=== PATIENT | female | born 1975 | race Caucasian/White ===

== ENCOUNTER 2018-11-25 12:22 | Emergency (ER) | payer SELFPAY ==
[2018-11-25 12:31] VITALS: BP 122/64; PULSE 65; RESP 18; TEMP 36.9; O2SAT 98; BMI 20.5
[2018-11-25 12:55] LABS: Urine Pregnancy, HCG Qual. Negative (Negative)
[2018-11-25 12:56] LABS: Microscopic, Urine URINE MICROSCOPIC (MICROSCOPIC)
--- NOTE | 2018-11-25 13:02 | CT_ITS ---
CT CERVICAL SPINE WITHOUT CONTRAST CT RECONSTRUCTIONS HISTORY:Neck pain, palpable abnormality left side of base of the neck. ORDERING PHYSICIAN: Burton Coker MD PATIENT AGE: 43 years COMPARISON: None Technique: All CT scans at the facility use one or more dose reduction, viz: automated exposure control, ma/kV adjustment per patient size (including targeted exams where dose is matched to indication, i.e. head), or iterative reconstruction technique PROCEDURE: Axial spiral CT scanning performed of the cervical spine beginning at the base of the skull and continuing to the upper T-spine. 3-D multiplanar reconstruction with 3-D manipulation of volumetric data set in image rendering was completed by the radiologist and/or technologist with the supervision of the radiologist on independent workstation. FINDINGS: There is normal alignment. No fracture or dislocation is evident. There is straightening of the cervical lordosis which could be due to patient positioning or muscle spasm. There is a small subarticular cystic region along the superior endplate of C7 posteriorly on the right nonspecific. No acute finding in the lung apices. No prevertebral soft tissue swelling. A BB is placed over palpable abnormality at the base of the neck on the left in the supraclavicular region. There is some minimal thickening of the subcutaneous tissues at this region but no discrete mass. IMPRESSION: Straightening of cervical lordosis. Otherwise essentially negative CT cervical spine Minimal thickening of the subcutaneous tissues in the left supraclavicular region
--- NOTE | 2018-11-25 13:02 | CT_ITS ---
CT head/brain wo con HISTORY: Left-sided pain ITS.REASON: pain ORDERING PHYSICIAN: Burton Coker MD PATIENT AGE: 43 years COMPARISON: None TECHNIQUE: Axial images obtained without contrast. Brain and bone windows reviewed. All CT scans at the facility use one or more dose reduction, viz: automated exposure control, ma/kV adjustment per patient size (including targeted exams where dose is matched to indication, i.e. head), or iterative reconstruction technique. FINDINGS: No midline shift, mass effect, intracranial hemorrhage, hydrocephalus, or extra-axial fluid collection is evident. On image #15 there is a subtle area of slight increased density in the posterior aspect of the left temporal lobe. This area measures approximate 6 mm with some surrounding decreased attenuation. A small space-occupying lesion is a consideration. This could also be due to artifact from patient's slight head tilt. Repeat CT with contrast suggested for further evaluation. No mastoid effusion or sinus air-fluid level. No acute calvarial abnormality. IMPRESSION: Possible small space-occupying lesion in the left temporal lobe posteriorly. Suggest CT of the head with contrast for further evaluation. No acute intracranial hemorrhage.
[2018-11-25 13:03] LABS: Basophils % 0.5 % (0.1-2.0); Eosinophils % 0.4 % (0.1-12.0); Hematocrit 45.7 % (37.0-47.0); Hemoglobin 13.3 g/dL (12.2-16.2); Lymphocytes # 2.1 K/mm3 (0.7-4.5); Lymphocytes % 30.5 % (10-50); Mean Corpuscular HGB Conc 29.1 g/dL (31.8-35.4); Mean Corpuscular Volume 99.8 fl (81-99); Mean Platelet Volume 8.1 fl (7.4-10.4); Monocytes # 0.3 K/mm3 (0.1-1.0); Neutrophils # 4.4 K/mm3 (1.8-7.8); Neutrophils % 63.5 % (37.0-80.0); Platelet Count 298 K/mm3 (142-424); Red Blood Count 4.58 M/mm3 (4.20-5.40); Red Cell Distribution Width 13.5 % (11.5-17.5); White Blood Count 6.9 K/mm3 (4.8-10.8)
--- NOTE | 2018-11-25 13:03 | XR_ITS ---
XR chest 2V HISTORY: Chest pain ITS.REASON: cp ORDERING PHYSICIAN: Burton Coker MD PATIENT AGE: 43 years COMPARISON: None FINDINGS: The cardiomediastinal silhouette and pulmonary vascularity are within normal limits. The lungs are clear without infiltrates, suspicious nodules, or pleural effusions. No acute bony abnormalities. IMPRESSION: Negative chest, no acute finding
--- NOTE | 2018-11-25 13:03 | CT_ITS ---
CT abdomen pelvis wo con CLINICAL INDICATION: Right-sided abdominal pain ITS.REASON: pain ORDERING PHYSICIAN: Burton Coker MD PATIENT AGE: 43 years COMPARISON: None TECHNIQUE: Axial images obtained with sagittal and coronal reformats. All CT scans at the facility use one or more dose reduction, viz: automated exposure control, ma/kV adjustment per patient size (including targeted exams where dose is matched to indication, i.e. head), or iterative reconstruction technique. PROCEDURE: Oral Contrast: None IV Contrast: None . FINDINGS: Lower thorax: No acute finding The liver, spleen, adrenal glands, pancreas, and gallbladder have an unremarkable unenhanced appearance. No renal or ureteral calculi. No hydronephrosis. No intestinal obstruction or free air. Unremarkable appendix. Moderate amount retained colonic feces. No intestinal obstruction or free air. There is some heterogeneous fluid density within the cul-de-sac versus unopacified small bowel loops. There is mild prominence of the cervix with low density changes in the central aspect of the cervix suggesting some endocervical fluid. There are multiple unopacified bowel loops present within the abdomen/pelvis which could obscure or mimic pathology. If symptoms persists, consider repeating exam with IV and oral contrast administration No acute bony findings. IMPRESSION: 1. No evidence of appendicitis or obstructing ureteral calculus. There is a mild amount of retained colonic feces. 2. There is mild prominence of the cervix is somewhat bulky uterus and questionable fluid in the endocervical region. Heterogeneous fluid versus unopacified bowel noted posterior to the uterine/cervical junction. These findings are questionable clinical significance. Pelvic ultrasound may be of further value. There are multiple unopacified bowel loops present within the abdomen/pelvis which could obscure or mimic pathology. If symptoms persists, consider repeating exam with IV and oral contrast administration
--- NOTE | 2018-11-25 13:04 | HMH.EDGENADL ---
ED Disposition Clinical Impression: Brain mass Disposition: Xfer Short-Term Hosp Condition on Discharge: Good Referrals: Macie Upton [Primary Care Provider] - Time of Disposition: 15:11 - Critical Care Critical Care Time: No Attestation: On , the high probability of a clinically significant, sudden or life threatening deterioration of the following system(s) required my full and direct attention, intervention and personal management. The time I documented below is in addition to time spent performing reported procedures but includes the following listed in this critical care notation. Medical Decision Making - Medical Records Medical records reviewed: Yes: I reviewed the patient's medical records. - Rafa Inquiry Pt receiving controlled substance: No Vital Signs: 11/25/18 12:31 11/25/18 15:05 Temperature 98.4 F Temperature Source Oral Pulse Rate [Left Radial] 65 55 L Respiratory Rate 18 Blood Pressure [Right Arm] 122/64 129/58 L Blood Pressure Mean [Right Arm] 83 81 Blood Pressure Source [Right Arm] Automatic Cuff Automatic Cuff Blood Pressure Position [Right Arm] Sitting 02 Sat by Pulse Oximetry 98 100 Oxygen Delivery Method Room Air Room Air - Lab Data Lab results reviewed: Yes: I reviewed the patient's lab results. Lab Results 11/25/18 12:44: Urine Color Yellow, Urine Appearance Clear, Urine pH 6.0, Ur Specific [place] >= 1.030, Urine Protein Negative, Urine Glucose (UA) Negative, Urine Ketones Negative, Urine Blood Negative, Urine Nitrate Negative, Urine Bilirubin Negative, Urine Urobilinogen 0.2, Ur Leukocyte Esterase Negative, Urine RBC None, Urine WBC Occasional, Ur Squamous Epith Cells 5-10, Urine Bacteria Trace 11/25/18 12:44: Urine HCG, Qual Negative 11/25/18 12:44: Urine Opiates Screen Negative, Urine Methadone Screen Negative, Ur Barbituates Screen Negative, Ur Phencyclidine Scrn Negative, Ur Amphetamines Screen Negative, U Benzodiazepines Scrn Negative, Urine Cocaine Screen Negative, U Marijuana (THC) Screen Positive H 11/25/18 12:53: WBC 6.9, RBC 4.58, Hgb 13.3, Hct 45.7, MCV 99.8 H, MCH 29.0, MCHC 29.1 L, RDW 13.5, Plt Count 298, MPV 8.1, Neut % (Auto) 63.5, Lymph % (Auto) 30.5, [place] % (Auto) 5.0, Eos % (Auto) 0.4, Baso % (Auto) 0.5, Neut # (Auto) 4.4, Lymph # (Auto) 2.1, [place] # (Auto) 0.3, Eos # (Auto) 0.0, Baso # (Auto) 0.0 11/25/18 12:53: Sodium 138, Potassium 3.6, Chloride 102, Carbon Dioxide 28, Anion Gap 11.6, BUN 13, Creatinine 0.74, Estimated Creat Clear 82, Estimated GFR 85, Est GFR ( Amer) 103, Glucose 91, Calcium 9.0, Total Bilirubin 0.4, AST 17, ALT 16, Alkaline Phosphatase 64, Total Protein 7.4, Albumin 4.2, Globulin 3.2, Albumin/Globulin Ratio 1.3 11/25/18 12:53: Troponin I < 0.02 Result diagrams: 11/25/18 12:53 11/25/18 12:53 - Radiology Data #1 Image(s): Chest Image Reviewed: Yes I have reviewed radiologist's interpretation - CT Data CT Scan: Head Time Received: 15:08 (left space occupying lesion) ED CT Reviewed: Yes: I discussed the CT results w/the radiologist Preliminary Findings: No Hematoma Seen - ECG Data Tracing #1 Normal Sinus Rhythm: Yes (no stemi) Medical Decision Narrative: pt accepted to neurosurgery ER by Dr Walsh, pt vss, no neurological change at this time General Adult HPI - General Chief complaint: PAIN Stated complaint: back and neck and arm pain Time Seen by Provider: 11/25/18 13:04 Mode of Arrival: Ambulatory Limitations: No Limitations Description of Symptoms (Recalled from ER Triage Doc. by RN): PT states that she has had a lump on her left neck for 3 years, states for about one month she has been having tingling go down her left arm with shoulder pain and left neck pain, today she has seen a blue flash in her left eye that comes and goes really fast like a camera pick. c/o lower right quad pain that hurts when she coughs or stretches, back pain that feels like it is her spine or kidney . Denies any injury - H
--- NOTE | 2018-11-25 13:07 | ED_ITS ---
ED Disposition Clinical Impression: Brain mass Disposition: Xfer Short-Term Hosp Condition on Discharge: Good Referrals: Macie Upton [Primary Care Provider] - Time of Disposition: 15:11 - Critical Care Critical Care Time: No Attestation: On , the high probability of a clinically significant, sudden or life threatening deterioration of the following system(s) required my full and direct attention, intervention and personal management. The time I documented below is in addition to time spent performing reported procedures but includes the following listed in this critical care notation. Medical Decision Making - Medical Records Medical records reviewed: Yes: I reviewed the patient's medical records. - Rafa Inquiry Pt receiving controlled substance: No Vital Signs: 11/25/18 12:31 11/25/18 15:05 Temperature 98.4 F Temperature Source Oral Pulse Rate [Left Radial] 65 55 L Respiratory Rate 18 Blood Pressure [Right Arm] 122/64 129/58 L Blood Pressure Mean [Right Arm] 83 81 Blood Pressure Source [Right Arm] Automatic Cuff Automatic Cuff Blood Pressure Position [Right Arm] Sitting 02 Sat by Pulse Oximetry 98 100 Oxygen Delivery Method Room Air Room Air - Lab Data Lab results reviewed: Yes: I reviewed the patient's lab results. Lab Results 11/25/18 12:44: Urine Color Yellow, Urine Appearance Clear, Urine pH 6.0, Ur Specific [place] >= 1.030, Urine Protein Negative, Urine Glucose (UA) Negative, Urine Ketones Negative, Urine Blood Negative, Urine Nitrate Negative, Urine Bilirubin Negative, Urine Urobilinogen 0.2, Ur Leukocyte Esterase Negative, Urine RBC None, Urine WBC Occasional, Ur Squamous Epith Cells 5-10, Urine Bacteria Trace 11/25/18 12:44: Urine HCG, Qual Negative 11/25/18 12:44: Urine Opiates Screen Negative, Urine Methadone Screen Negative, Ur Barbituates Screen Negative, Ur Phencyclidine Scrn Negative, Ur Amphetamines Screen Negative, U Benzodiazepines Scrn Negative, Urine Cocaine Screen Negative, U Marijuana (THC) Screen Positive H 11/25/18 12:53: WBC 6.9, RBC 4.58, Hgb 13.3, Hct 45.7, MCV 99.8 H, MCH 29.0, MCHC 29.1 L, RDW 13.5, Plt Count 298, MPV 8.1, Neut % (Auto) 63.5, Lymph % (Auto) 30.5, [place] % (Auto) 5.0, Eos % (Auto) 0.4, Baso % (Auto) 0.5, Neut # (Auto) 4.4, Lymph # (Auto) 2.1, [place] # (Auto) 0.3, Eos # (Auto) 0.0, Baso # (Auto) 0.0 11/25/18 12:53: Sodium 138, Potassium 3.6, Chloride 102, Carbon Dioxide 28, Anion Gap 11.6, BUN 13, Creatinine 0.74, Estimated Creat Clear 82, Estimated GFR 85, Est GFR ( Amer) 103, Glucose 91, Calcium 9.0, Total Bilirubin 0.4, AST 17, ALT 16, Alkaline Phosphatase 64, Total Protein 7.4, Albumin 4.2, Gl obulin 3.2, Albumin/Globulin Ratio 1.3 11/25/18 12:53: Troponin I < 0.02 Result diagrams: 11/25/18 12:53 11/25/18 12:53 - Radiology Data #1 Image(s): Chest Image Reviewed: Yes I have reviewed radiologist's interpretation - CT Data CT Scan: Head Time Received: 15:08 (left space occupying lesion) ED CT Reviewed: Yes: I discussed the CT results w/the radiologist Preliminary Findings: No Hematoma Seen - ECG Data Tracing #1 Normal Sinus Rhythm: Yes (no stemi) Medical Decision Narrative: pt accepted to neurosurgery ER by Dr Walsh, pt vss, no neurological change at this time General Adult HPI - General Chief complaint: POLINA
[2018-11-25 13:14] LABS: Appearance,Urine CLEAR (Clear); Bilirubin,Urine Negative (Negative); Blood, Urine Negative (Negative); Color,Urine YELLOW (Yellow); Glucose,Urine (UA) Negative (Negative); Ketones,Urine Negative (Negative); Leukocyte Esterase,Urine Negative (Negative); Nitrate,Urine Negative (Negative); Protein,Urine Negative (Negative); Specific Gravity, Urine >= 1.030 (1.005-1.030); Urobilinogen,Urine 0.2 EU/dl (0.2)
[2018-11-25 13:15] LABS: Alanine Aminotransferase 16 U/L (12-78); Albumin Level 4.2 gm/dL (3.4-5.0); Albumin/Globulin Ratio 1.3 (1.1-1.8); Alkaline Phosphatase 64 U/L (46-116); Anion Gap 11.6 mEq/L (5-15); Aspartate Amino Transferase 17 U/L (15-37); Bilirubin,Total 0.4 mg/dL (0.2-1.0); Blood Urea Nitrogen 13 mg/dL (7-18); Carbon Dioxide 28 mmol/L (21.0-32.0); Chloride 102 mmol/L (98-107); Creatinine Clearance Estimated 82 mL/min (50-200); Creatinine,Serum 0.74 mg/dL (0.55-1.02); Estimated Glomerular Filt Rate 85 ml/min (>60); GFR (African American) 103 ML/MIN (>60); Globulin 3.2 gm/dl (1.3-3.2); Glucose 91 mg/dL (74-106); Potassium 3.6 mmoL/L (3.5-5.1); Sodium 138 mmol/L (136-145); Total Protein,Serum 7.4 gm/dL (6.4-8.2)
[2018-11-25 13:21] LABS: Amphetamine/Metha Screen,Urine Negative ng/mL (<1000); Barbiturates Screen,Urine Negative ng/mL (<200); Benzodiazepines Screen,Urine Negative ng/mL (<200); Cannabinoid Screen,Urine Positive ng/mL (<50); Cocaine Screen,Urine Negative ng/mL (<300); Methadone Screen,Urine Negative ng/mL (<300); Opiate Screen,Urine Negative ng/mL (<300); Phencyclidine Screen,Urine Negative ng/mL (<25)
[2018-11-25 13:28] LABS: Bacteria,Urine Trace /lpf; WBC,Urine Occasional #/hpf (0-3)
[2018-11-25 14:23] LABS: Troponin I < 0.02 ng/ml (0.00-0.06)
--- NOTE | 2018-11-25 15:03 | PC.NURSE ---
Dr. Coker speaking with [employer] at this time.
[2018-11-25 15:05] VITALS: BP 129/58; PULSE 55; O2SAT 100
[2018-11-25 16:25] VITALS: BP 115/65; PULSE 61; RESP 17; TEMP 37; O2SAT 99
== END 2018-11-25 16:30 | disposition short-term general hospital (02) ==
PROVIDERS: Emergency Provider Emergency Medicine Emergency Medical Services; PCP Internal Medicine Addiction Medicine
DX: G93.9 Disorder of brain, unspecified (principal)
CPT/HCPCS: 70450; 71046; 72125; 74176; 80053; 80305; 81001; 81025; 84484; 85025; 93005; 99284

== ENCOUNTER 2021-01-02 11:19 | Emergency (ER) | payer SELFPAY ==
[2021-01-02 12:03] VITALS: BP 121/76; PULSE 91; RESP 19; TEMP 36.8; O2SAT 100; BMI 24.0
--- NOTE | 2021-01-02 12:16 | HMH.EDUTC ---
[facility] [place] Disposition Clinical Impression: Abscess, dental, Pain, dental, Jaw pain Allergic reaction to drug Qualifiers: Encounter type: initial encounter Qualified Code(s): T78.40XA - Allergy, unspecified, initial encounter Disposition: Home, Self-Care Condition on Discharge: Good Instructions: Tooth Abscess, DI for General Allergic Reactions Additional Instructions: Avoid Keflex and all other cephalosporins from now on. Please have it listed as an allergy at anywhere that you receive medical care. I will list it as an allergy here in this [facility]'s computer system. Take the prescribed medications as directed. Follow up with your primary care doctor. You have to follow up with your dentist regarding your abscessed tooth. Please call and get an appointment. GO TO THE ER FOR ANY WORSENING SYMPTOMS OR CONCERNS, ESPECIALLY ANY SWELLING OF YOUR MOUTH OR THROAT. Prescriptions: clindamycin HCL [Cleocin HCl] 300 mg PO Q8H #30 cap Transmission Status: Received by [facility] methylPREDNISolone [Medrol] 4 mg PO DIRECTED 6 Days #21 tab.ds.pk Transmission Status: Received by [facility] Referrals: Provider,Referral, [Primary Care Provider] - Forms: Work/School Release Time of Disposition: 12:23 Medical Decision Making - Medical Records Medical records reviewed: No: I reviewed the patient's medical records. - Rafa Inquiry Pt receiving controlled substance: No Vital Signs: 01/02/21 12:03 01/02/21 12:27 Temperature 98.2 F 98 F Temperature Source Oral Pulse Rate 87 Pulse Rate [Right] 91 H Respiratory Rate 19 16 Blood Pressure 124/80 Blood Pressure [Right Arm] 121/76 Blood Pressure Mean [Right Arm] 91 Blood Pressure Source [Right Arm] Automatic Cuff 02 Sat by Pulse Oximetry 100 Oxygen Delivery Method Room Air [facility] [place] HPI - General Stated complaint: allergic reaction to antibiotic/rash Time Seen by Provider: 01/02/21 12:16 Mode of Arrival: Ambulatory Source of Information: Patient Limitations: No Limitations Description of Symptoms (Recalled from Triage Doc. by RN): pt states she is having an allergic reaction to cephalexin ( her husbands perscription). pt states she has had hives going on three days. pt also c/o L bottom jaw pain from a tooth. HEENT Symptoms (Recalled from RN notes): Yes (bottom L jaw pain from a tooth) Resp Symptoms (Recalled from RN notes): No Skin Symptoms (Recalled from RN notes): Yes (hives x3 days) MS Symptoms (Recalled from RN notes): No Functional Status (Recalled from RN notes): na - History of Present Illness Provider Complaint: She has been having left upper jaw dental pain and swelling. This started about 4 days ago. She took some keflex that her had left over in their medicine cabinet last night. Then during last night she began having itching and a generalized skin rash. She thinks that she is allergic to the keflex. She states that her rash and itching has got some better today. But, she is still having the tooth pain and swelling. - Related Data Previous Rx's Medication Instructions Recorded clindamycin HCL [Cleocin HCl] 300 mg PO Q8H #30 cap 01/02/21 methylPREDNISolone [Medrol] 4 mg PO DIRECTED 6 Days #21 01/02/21 tab.ds.pk Allergies Allergy/AdvReac Type Severity Reaction Status Date / Time No Known Allergies Allergy Verified 11/25/18 12:40 - Worker's Comp Is this a Worker's Comp case?: No [facility] History - Hepatitis A Screen Drug use history?: No High risk sexual behaviors?: No History of sexually transmitted infection?: No Currently employed?: No Childcare worker?: No Do you have indoor plumbing?: Yes Do you have electricity?: Yes Attestation statement:: This patient has been screened for Hepatitis A risk factors. I have reviewed the patient's past medical history: Yes Medical History: Denies:: Diabetes Mellitus Type 1, Diabetes Mellitus Type 2 - Social History Alcohol Intake: current Alc
[2021-01-02 12:27] VITALS: BP 124/80; PULSE 87; RESP 16; TEMP 36.6
== END 2021-01-02 12:32 | disposition home or self-care (01) ==
PROVIDERS: Emergency Provider Nurse Practitioner Family
DX: K04.7 Periapical abscess without sinus (principal); T78.40XA Allergy, unspecified, initial encounter; T36.1X1A Poisoning by cephalosporins and other beta-lactam antibiotics, accidental (unintentional), initial encounter; F12.10 Cannabis abuse, uncomplicated

== ENCOUNTER 2021-08-28 11:40 | Emergency (ER) | payer SELFPAY ==
[2021-08-28 12:13] VITALS: BP 135/52; PULSE 51; RESP 16; TEMP 36.9; O2SAT 100; BMI 22.1
--- NOTE | 2021-08-28 12:14 | HMH.EDUTC ---
[facility] [place] Disposition Clinical Impression: Dental abscess, Pain, dental, Jaw pain Disposition: Home, Self-Care Condition on Discharge: Good Instructions: Tooth Abscess Additional Instructions: Drink plenty of fluids. Take tylenol or ibuprofen for pain or fever. Take the medications as directed. Follow up with your regular doctor. GO TO THE ER FOR ANY WORSENING SYMPTOMS you have to be seen by your dentist soon. Prescriptions: Ibuprofen [Ibuprofen 600mg Tablet] 600 mg PO Q6HP PRN #30 tab PRN Reason: Mild Pain Transmission Status: Received by [facility] Amoxicillin/Potassium Clav [Amox-Clav 875-125 mg Tablet] 1 tab PO BID #20 tab Transmission Status: Received by [facility] Referrals: Provider,Referral, [Primary Care Provider] - Time of Disposition: 12:51 Medical Decision Making - Medical Records Medical records reviewed: No: I reviewed the patient's medical records. - Rafa Inquiry Pt receiving controlled substance: No Vital Signs: 08/28/21 12:13 08/28/21 13:13 Temperature 98.4 F 98.4 F Temperature Source Oral Pulse Rate 51 L Pulse Rate [Left] 51 L Respiratory Rate 16 16 Blood Pressure 135/52 L Blood Pressure [Right Arm] 135/52 L Blood Pressure Mean [Right Arm] 79 02 Sat by Pulse Oximetry 100 [facility] [place] HPI - General Stated complaint: possible mouth infection Time Seen by Provider: 08/28/21 12:14 - History of Present Illness Provider Complaint: She states that she has dental pain of her left upper jaw for the past several days. She has a dental appt coming up in 4 days. - Related Data Previous Rx's Medication Instructions Recorded clindamycin HCL [Cleocin HCl] 300 mg PO Q8H #30 cap 01/02/21 methylPREDNISolone [Medrol] 4 mg PO DIRECTED 6 Days #21 01/02/21 tab.ds.pk Amoxicillin/Potassium Clav 1 tab PO BID #20 tab 08/28/21 [Amox-Clav 875-125 mg Tablet] Ibuprofen [Ibuprofen 600mg 600 mg PO Q6HP PRN #30 tab 08/28/21 Tablet] Allergies Allergy/AdvReac Type Severity Reaction Status Date / Time cephalexin [From Keflex] Allergy Verified 08/28/21 12:15 [facility] History - Hepatitis A Screen Attestation statement:: This patient has been screened for Hepatitis A risk factors. I have reviewed the patient's past medical history: Yes Medical History: Denies:: Diabetes Mellitus Type 1, Diabetes Mellitus Type 2 - Social History Alcohol Intake: current Alcohol Intake Frequency:: holidays/special occasions only Substance Use Type: marijuana Occupational Status: unemployed ROS Obtained: Yes All systems reviewed & no additional complaints - Constitutional Constitutional: Denies chills, Denies fever(s) - Eyes Eyes: Denies eye discharge - ENT Ears, Nose, Mouth, and Throat: Reports as per HPI Physical Exam - General General appearance: alert, in no apparent distress - Head Head exam: atraumatic, normocephalic, normal inspection - Eye Eye exam: Present: normal appearance, PERRL, EOMI - ENT ENT exam: Present: normal exam, normal oropharynx, mucous membranes moist, TM's normal bilaterally, normal external ear exam - Neck Neck exam: Present: normal inspection, full ROM, trachea midline. Absent: meningismus, lymphadenopathy - Chest Chest inspection: Present: normal inspection, symmetric chest wall rise. Absent: tenderness - Respiratory Respiratory exam: Present: normal lung sounds bilaterally. Absent: respiratory distress - Cardiovascular Cardiovascular exam: Present: regular rate, normal rhythm. Absent: JVD - Abdominal Exam Abdominal exam: Present: soft, normal bowel sounds. Absent: distention, tenderness, guarding - Extremities Exam Extremities exam: Present: normal inspection, full ROM, normal capillary refill. Absent: calf tenderness - Back Exam Back exam: Present: normal inspection. Absent: tenderness - Neurological Exam Neurological exam: Present: alert, oriented X3 - Psychiatric P
[2021-08-28 13:13] VITALS: BP 135/52; PULSE 51; RESP 16; TEMP 36.9
== END 2021-08-28 13:14 | disposition home or self-care (01) ==
PROVIDERS: Emergency Provider Nurse Practitioner Family
DX: K04.7 Periapical abscess without sinus (principal); R68.84 Jaw pain; Z79.1 Long term (current) use of non-steroidal anti-inflammatories (NSAID); Z79.51 Long term (current) use of inhaled steroids; Z79.899 Other long term (current) drug therapy; Z88.8 Allergy status to other drugs, medicaments and biological substances
CPT/HCPCS: 99213; G0463

== ENCOUNTER 2023-05-24 15:48 | Emergency (ER) | payer SELFPAY ==
[2023-05-24 15:58] VITALS: BP 0/0; PULSE 0; RESP 0; TEMP -17.7; TEMP 0
== END 2023-05-24 15:58 | disposition home or self-care (01) ==
PROVIDERS: Emergency Provider Nurse Practitioner Family; PCP Internal Medicine Addiction Medicine
DX: Z53.21 Procedure and treatment not carried out due to patient leaving prior to being seen by health care provider (principal)

== ENCOUNTER 2024-01-11 11:32 | Outpatient (CLI) | payer OTHER, SELFPAY | END 2024-01-11 23:59 | disposition home or self-care (01) | LOC: RT 11:32 | PROVIDERS: PCP Family Medicine; Visit Provider Physician Assistant | DX: R00.2 Palpitations (principal); R00.1 Bradycardia, unspecified; R06.00 Dyspnea, unspecified; R07.89 Other chest pain; Z86.79 Personal history of other diseases of the circulatory system | CPT/HCPCS: 93270 ==